=== PATIENT | male | born 1980 | race Caucasian/White ===

== ENCOUNTER 2024-04-02 19:13 | Emergency (ER) | payer OTHER ==
[~2024-04-02] VITALS: Ht 180.3 cm; Wt 90.7 kg
[2024-04-02 20:40] VITALS: BP 146/94; TEMP 98; O2SAT 99
[2024-04-02] MEDS ORDERED: CLIN300C12 PO (21:10)
== END 2024-04-02 22:29 | disposition home or self-care (01) ==
LOC: ER 19:24
DX: M79.644 Pain in right finger(s) (principal)
CPT/HCPCS: 73130-TC